=== PATIENT | male | born 1960 | race Caucasian/White ===

== ENCOUNTER 2021-01-10 03:33 | Emergency (ER) | payer OTHER, SELFPAY ==
--- NOTE | ~2021-01-10 | CT_ITS ---
EXAMINATION: CT brain wo con DATE: 01/10/2021 04:26 INDICATION: Trauma TECHNIQUE: Computed tomography (CT) of the head was performed without intravenous contrast. The mA wa s adjusted according to patient size. Iterative reconstruction technique was employed. Exam dose: 60 5.33 mGy-cm total exam DLP. COMPARISON: None FINDINGS: The examination is limited due to motion. No intracranial mass lesion or hemorrhage or cerebrovascular accident is evident. No midline shift or mass effect effect. Prominent bilateral carotid siphon and supraclinoid internal carotid artery calcifications. No evidence of subdural or epidural hematoma. No skull fracture or bone destruction There is patchy soft tissue thickening in the ethmoid air cells. There is moderate mucoperiosteal thi ckening of the left sphenoid sinus surgery IMPRESSION: Limited examination; no apparent acute intracranial finding or skull fracture Reviewed, dictated and finalized at [facility]. Reviewed, dictated and finalized at [facility]. IMPRESSION: Limited examination; no apparent acute intracranial finding or sku ll fracture
--- NOTE | ~2021-01-10 | CT_ITS ---
EXAMINATION: CT cervical spine wo con DATE: 01/10/2021 04:28 INDICATION: Injury TECHNIQUE: Computed tomography (CT) of the cervical spine was performed without intravenous contrast. Automated exposure control and iterative reconstruction technique were employed. Exam dose: 363.40 mGy-cm total exam DLP. COMPARISON: None FINDINGS: There is reversal cervical curvature. C1 and C2 are normally aligned and the odontoid process is intact. No fracture or dislocation or lock ed facet or prevertebral soft tissue swelling. There is mild degenerative disease at C3-4 and C4-5 and moderately severe degenerative disease at C5- 6 and C6-7, with very prominent posterior spurring at the latter 2 interspaces. There is degenerative change at the apophyseal joints. There is uncovertebral joint spurring at the m id and particularly lower cervical spine. IMPRESSION: Reversal of cervical curvature Cervical spondylosis No fracture or dislocation Reviewed, dictated and finalized at [facility]. Reviewed, dictated and finalized at [facility].
[2021-01-10 03:32] VITALS: BP 115/77; PULSE 94; RESP 20; TEMP 36.7; O2SAT 95
--- NOTE | 2021-01-10 03:53 | PC.NURSE ---
pt sleeping with snoring resps between care. slurred speech. on compliance monitor.
[2021-01-10 04:04] LABS: Basophils Percent Auto 0.4 % (0.2-1.2); Eosinophils Absolute Auto 0.2 K/mm3 (0-0.3); Eosinophils Percent Auto 2.7 % (0-4.4); Hemoglobin 11.8 g/dL (14.0-18.0); Immature Granulocyte Absolute 0.03 K/mm3 (0.00-0.031); Immature Granulocyte Percent A 0.5 % (0-0.5); Lymphocytes Absolute Auto 1.37 K/mm3 (0.9-3.2); Lymphocytes Percent Auto 24.9 % (18.3-44.2); Mean Corpuscular HGB Conc 33.7 g/dl (32-36); Mean Corpuscular Hemoglobin 30.5 pg (26-34); Mean Corpuscular Volume 90.4 fl (80-100); Mean Platelet Volume 8.7 fl (7.4-10.4); Monocytes Absolute Auto 0.6 K/mm3 (0.1-0.6); Monocytes Percent Auto 10.7 % (2.6-8.5); Neutrophils Absolute Auto 3.3 K/mm3 (1.3-6.7); Neutrophils Percent Auto 60.8 % (45.5-73.1); Platelet Count Result 291 k/mm3 (150-375); Red Blood Count 3.87 M/mm3 (4.6-6.20); Red Cell Distribution Width 13.2 % (11.5-14.5); White Blood Count 5.5 K/mm3 (4.5-10.0)
[2021-01-10 04:14] LABS: Anion Gap 10 mmol/L (8-16); Blood Urea Nitrogen 16 mg/dL (9-20); Calcium 9.5 mg/dL (8.4-10.2); Carbon Dioxide 24 mmol/L (22-30); Chloride 100 mmol/L (98-107); Estimated Glomerular Filt Rate 57; Glucose 123 mg/dL (65-110); Potassium 3.2 mmol/L (3.4-5.0); Sodium 134 mmol/L (137-145)
[2021-01-10 04:16] LABS: Ethanol < 10 mg/dL (<10)
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
--- NOTE | 2021-01-10 05:55 | PC.NURSE ---
Pt had miniscule glass shards in bilateral ear canals, noted by physician on exam. ED MD verbal order received to wipe external ear canals with damp washcloth to facilitate removal. pt's ears wiped with warm, damp washcloth to remove glass. pt tolerated well.
--- NOTE | 2021-01-10 06:00 | PC.NURSE ---
C-spine cleared by AUNDREA POWELL. Collar removed by AUNDREA Neff.
[2021-01-10 06:05] VITALS: BP 120/86; PULSE 85; RESP 19; TEMP 36.4; O2SAT 98
--- NOTE | 2021-01-10 06:20 | PC.NURSE ---
Pt ambulated around entire nurses station with standby assist. ED MD verified pt ok to d/c home. Escorted by this RN to ED Lobby to use visitor phone to call for ride.
== END 2021-01-10 06:33 | disposition home or self-care (01) ==
PROVIDERS: Emergency Provider Emergency Medicine
DX: S16.1XXA Strain of muscle, fascia and tendon at neck level, initial encounter (principal); I25.10 Atherosclerotic heart disease of native coronary artery without angina pectoris; J44.9 Chronic obstructive pulmonary disease, unspecified; V49.88XA Car occupant (driver) (passenger) injured in other specified transport accidents, initial encounter
CPT/HCPCS: 36415; 70450; 72125; 80048; 80307; 85025; 99284